=== PATIENT | male | born 1955 | race Caucasian/White ===

== ENCOUNTER 2018-09-19 10:12 | Emergency (ER) | payer OTHER ==
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
== END 2018-09-19 12:30 | disposition home or self-care (01) ==
LOC: LB.ED 10:12
DX: S30.1XXA Contusion of abdominal wall, initial encounter (principal); V91.82XA Other injury due to other accident to fishing boat, initial encounter
CPT/HCPCS: 36415; 74176; 80053; 81001; 85025; 99284-25